=== PATIENT | male | born 2000 | race Caucasian/White ===

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

== ENCOUNTER 2022-09-13 20:32 | Emergency (ER) | payer OTHER ==
[~2022-09-13] VITALS: Ht 180.3 cm; Wt 61.2 kg
[2022-09-13 23:47] LABS: BASO % 0.5 % (0.0-1.0); EOS % 0.5 % (1.0-4.0); HEMATOCRIT 40.2 % (42.0-52.0); LYMPH # 1.8 10*3/uL (1.3-4.4); LYMPH % 26.8 % (27.0-41.0); MEAN CELL VOLUME 88.9 fl (80.0-94.0); MEAN CORPUSCULAR HGB 30.1 pg (27.0-31.0); MEAN CORPUSCULAR HGB CONC 33.8 g/dl (33.0-37.0); MEAN PLATELET VOLUME 9.8 fl (9.6-12.3); MONO # 0.5 10*3/uL (0.1-1.0); MONO % 8.1 % (3.0-9.0); NEUT # 4.2 10*3/uL (2.3-7.9); NEUT % 63.8 % (47.0-73.0); PLATELET COUNT AUTOMATED 228 10*3/uL (130-400); RED BLOOD COUNT 4.52 10*6/uL (4.50-5.90); RED CELL DISTRI WIDTH 12.5 % (0-14.5); WHITE BLOOD COUNT 6.5 10*3/uL (4.8-10.8)
[2022-09-14 00:02] LABS: ALKALINE PHOSPHATASE 76 U/L (46-116); BUN 13 mg/dl (9-23); CHLORIDE 103 mmol/L (98-107); POTASSIUM 3.8 mmol/L (3.4-5.1); SGPT/ALT 10 U/L (10-49); TOTAL PROTEIN 7.4 gm/dL (6.0-8.0)
== END 2022-09-14 00:49 | disposition home or self-care (01) ==
LOC: ED 20:32
PROVIDERS: Emergency Medicine
DX: R07.89 Other chest pain (principal)

== ENCOUNTER 2024-04-08 20:55 | Emergency (ER) | payer OTHER ==
[~2024-04-08] VITALS: Ht 180.3 cm; Wt 59.0 kg
[2024-04-08] MEDS ORDERED: SODIUM CHLORIDE 0.9% 1,000 ML IV ONE (21:20)
[2024-04-08] MEDS ORDERED: IOHEXOL 300 MG/ML 100 ML VIAL IV ONE (21:25)
[2024-04-08 21:39] LABS: BASO # 0.1 10*3/uL (0.0-0.1); BASO % 0.3 % (0.0-1.0); EOS % 0.2 % (1.0-4.0); HEMATOCRIT 39.1 % (42.0-52.0); LYMPH # 1.3 10*3/uL (1.3-4.4); LYMPH % 7.4 % (27.0-41.0); MEAN CELL VOLUME 89.9 fl (80.0-94.0); MEAN CORPUSCULAR HGB 30.3 pg (27.0-31.0); MEAN CORPUSCULAR HGB CONC 33.8 g/dl (33.0-37.0); MONO # 1.4 10*3/uL (0.1-1.0); MONO % 8.1 % (3.0-9.0); NEUT # 14.6 10*3/uL (2.3-7.9); NEUT % 83.4 % (47.0-73.0); PLATELET COUNT AUTOMATED 220 10*3/uL (130-400); RED BLOOD COUNT 4.35 10*6/uL (4.50-5.90); RED CELL DISTRI WIDTH 11.9 % (0-14.5); WHITE BLOOD COUNT 17.5 10*3/uL (4.8-10.8)
[2024-04-08 21:57] LABS: BUN 12 mg/dl (9-23); CHLORIDE 105 mmol/L (98-107); POTASSIUM 3.8 mmol/L (3.4-5.1)
[2024-04-09] MEDS ORDERED: Piperacillin Sodium/Tazobact 50 ML IV ONE ×2 (00:15→07:00)
[2024-04-09] MEDS ORDERED: Dexamethasone Sodium Phospha 20 MG/5 ML VIAL IV ONE (00:25)
[2024-04-09] MEDS ORDERED: EPINEPHrine Hydrochloride 1 MG,IV 1 EA in SODIUM CHLORIDE 0.9% 250 ML IV SCH (07:25)
[2024-04-09] MEDS ORDERED: EPINEPHrine Hydrochloride 1 MG,IV 1 EA in SODIUM CHLORIDE 0.9% 250 ML IV ONE (07:50)
== END 2024-04-09 07:33 | disposition short-term general hospital (02) ==
LOC: ED 20:55
PROVIDERS: Emergency Medicine
DX: K11.20 Sialoadenitis, unspecified (principal); L03.221 Cellulitis of neck

== ENCOUNTER 2025-05-27 14:00 | Emergency (ER) | payer BC ==
[~2025-05-27] VITALS: Ht 182.8 cm; Wt 59.0 kg
[2025-05-27] MEDS ORDERED: Ondansetron Hydrochloride 4 MG/2 ML VIAL IV ONE (14:35)
[2025-05-27] MEDS ORDERED: SODIUM CHLORIDE 0.9% 500 ML IV ONE (14:35)
[2025-05-27 14:47] LABS: BASO # 0.0 10*3/uL (0.0-0.1); BASO % 0.2 % (0.0-1.0); EOS # 0.0 10*3/uL (0.0-0.4); EOS % 0.1 % (1.0-4.0); MEAN CELL VOLUME 89.5 fl (80.0-94.0); MEAN CORPUSCULAR HGB 30.4 pg (27.0-31.0); MEAN PLATELET VOLUME 9.9 fl (9.6-12.3); MONO # 0.7 10*3/uL (0.1-1.0); MONO % 7.1 % (3.0-9.0); NEUT # 8.3 10*3/uL (2.3-7.9); NEUT % 89.0 % (47.0-73.0); NUCLEATED RED BLOOD CELL 0.0 % (0.0-0.0); NUCLEATED RED BLOOD CELL 0.0 10*3/uL (0.0-0.0); PLATELET COUNT AUTOMATED 186 10*3/uL (130-400); RED CELL DISTRI WIDTH 12.1 % (0-14.5)
[2025-05-27 15:15] LABS: BUN 9 mg/dl (9-23); SGPT/ALT 14 U/L (5-49)
[2025-05-27] MEDS ORDERED: Ondansetron4 MG PO (16:25)
== END 2025-05-27 15:44 | disposition home or self-care (01) ==
LOC: ED 14:00
PROVIDERS: Emergency Medicine
DX: A08.4 Viral intestinal infection, unspecified (principal); F12.90 Cannabis use, unspecified, uncomplicated